=== PATIENT | male | born 2000 ===

== ENCOUNTER 2025-01-28 20:07 | Observation (INO) ==
[2025-01-28] MEDS: ONDANSETRON 4 MG/2 ML VIAL IV ONE (20:38)
[2025-01-28] MEDS: 0.9 % SODIUM CHLORIDE 1,000 ML IV ONE ×2 (20:38→21:20)
[2025-01-28 21:19] LABS: Basophils # (Auto) 0 K/mcL (0.00-0.30); Basophils % (Auto) 0 % (0.0-2.0); Eosinophils # (Auto) 0 K/mcL (0.00-0.70); Eosinophils % (Auto) 0 % (0.0-7.0); Hematocrit 54.1 % (40.1-51.0); Hemoglobin 19.6 g/dL (13.7-17.5); Lymphocytes % (Auto) 6.5 % (15.5-49.0); Mean Corpuscular HGB Conc 36.2 g/dL (31.0-36.0); Mean Platelet Volume 9.8 fL (8.8-12.5); Monocytes # (Auto) 1.85 K/mcL (0.10-0.90); Monocytes % (Auto) 8.5 % (1.0-12.0); Neutrophils % (Auto) 84.4 % (38.0-78.0); Platelet Count 317 K/mcL (140-440); RBC 6.22 M/mcL (4.63-6.08); Red Cell Distribution Width 11.3 % (11.5-14.5); WBC 21.7 K/mcL (4.5-11.0)
[2025-01-28 21:35] LABS: ALT/SGPT 37 U/L (<40); AST/SGOT 42 U/L (<40); Albumin 5.7 gm/dL (3.2-5.2); Albumin/Globulin Ratio 1.5 (1.0-2.3); Alkaline Phosphatase 101 U/L (39-117); Bilirubin,Total 2.3 mg/dL (0.1-1.0); Blood Urea Nitrogen 29 mg/dL (6-20); Calcium 11.1 mg/dL (8.6-10.4); Carbon Dioxide 23 mmol/L (22-30); Chloride 90 mmol/L (96-108); Creatine Kinase 798 U/L (24-195); Globulin 3.9 gm/dL (2.2-3.7); Glomerular Filtration Rate 25; Glucose 129 mg/dL (70-105); Potassium 3.7 mmol/L (3.3-5.1); Sodium 139 mmol/L (133-145)
[2025-01-28 21:36] LABS: Thyroid Stimulating Hormone 4.32 uIU/mL (0.27-5.01)
[2025-01-28 22:40] LABS: Basophils # (Auto) 0.01 K/mcL (0.00-0.30); Basophils % (Auto) 0 % (0.0-2.0); Eosinophils # (Auto) 0 K/mcL (0.00-0.70); Eosinophils % (Auto) 0 % (0.0-7.0); Hematocrit 48.6 % (40.1-51.0); Hemoglobin 17.4 g/dL (13.7-17.5); Lymphocytes # (Auto) 1.13 K/mcL (1.50-4.80); Lymphocytes % (Auto) 5.5 % (15.5-49.0); Mean Cell Volume 88.8 fL (80.0-100.0); Mean Corpuscular HGB Conc 35.8 g/dL (31.0-36.0); Mean Platelet Volume 9.6 fL (8.8-12.5); Monocytes % (Auto) 6.8 % (1.0-12.0); Neutrophils % (Auto) 87.3 % (38.0-78.0); Platelet Count 251 K/mcL (140-440); RBC 5.47 M/mcL (4.63-6.08); Red Cell Distribution Width 11.4 % (11.5-14.5); WBC 20.5 K/mcL (4.5-11.0)
[2025-01-28 23:14] LABS: ALT/SGPT 31 U/L (<40); AST/SGOT 36 U/L (<40); Albumin 4.9 gm/dL (3.2-5.2); Albumin/Globulin Ratio 1.5 (1.0-2.3); Alkaline Phosphatase 80 U/L (39-117); Bilirubin,Total 1.9 mg/dL (0.1-1.0); Blood Urea Nitrogen 27 mg/dL (6-20); Calcium 9.2 mg/dL (8.6-10.4); Carbon Dioxide 25 mmol/L (22-30); Chloride 97 mmol/L (96-108); Globulin 3.2 gm/dL (2.2-3.7); Glomerular Filtration Rate 35; Glucose 95 mg/dL (70-105); Potassium 3.9 mmol/L (3.3-5.1); Sodium 138 mmol/L (133-145)
[2025-01-28 23:15] LABS: Appearance,Urine Cloudy (Clear); Bacteria,Urine Few /hpf (0); Bilirubin,Urine Small mg/dL (Negative); Color,Urine Yellow; Glucose,Urine (UA) Negative (Negative); Ketones,Urine 15 mg/dL (Negative); Leukocyte Esterase,Urine Small /uL (Negative); Mucus,Urine Mod /hpf; Nitrate,Urine Negative (Negative); PH,Urine 5.5 (5.0-9.0); Protein,Urine 100 mg/dL (Negative); Specific Gravity,Urine 1.025 (1.000-1.035); Urine Blood Negative ery/mcL (Negative); Urine Budding Yeast Few /hpf; Urine Hyaline Cast 21 /lph (0-2); Urine RBC 10 /hpf (0-3); Urine Squamous Epithelial Cell 2 /hpf (0-4); Urine WBC 20 /hpf (0-4); Urobilinogen,Urine Normal
[2025-01-29] MEDS ORDERED: ONDANSETRON 4 MG/2 ML VIAL IV PRN ×2 (00:27→06:59)
[2025-01-29] MEDS: 0.9 % SODIUM CHLORIDE 1,000 ML IV SCH (01:33)
[2025-01-29 06:51] LABS: Basophils # (Auto) 0.01 K/mcL (0.00-0.30); Basophils % (Auto) 0.1 % (0.0-2.0); Eosinophils # (Auto) 0.06 K/mcL (0.00-0.70); Eosinophils % (Auto) 0.5 % (0.0-7.0); Hematocrit 43.7 % (40.1-51.0); Hemoglobin 15.6 g/dL (13.7-17.5); Lymphocytes # (Auto) 1.67 K/mcL (1.50-4.80); Lymphocytes % (Auto) 13.1 % (15.5-49.0); Mean Cell Volume 89.2 fL (80.0-100.0); Mean Corpuscular HGB Conc 35.7 g/dL (31.0-36.0); Mean Platelet Volume 9.6 fL (8.8-12.5); Monocytes # (Auto) 1.31 K/mcL (0.10-0.90); Monocytes % (Auto) 10.3 % (1.0-12.0); Neutrophils % (Auto) 75.7 % (38.0-78.0); Platelet Count 231 K/mcL (140-440); Red Cell Distribution Width 11.6 % (11.5-14.5); WBC 12.8 K/mcL (4.5-11.0)
[2025-01-29] MEDS ORDERED: IPRATROPIUM/ALBUTEROL 3 ML AMPUL.NEB NEB PRN (06:59)
[2025-01-29] MEDS ORDERED: ACETAMINOPHEN 325 MG TABLET PO PRN (06:59)
[2025-01-29 07:11] LABS: ALT/SGPT 25 U/L (<40); AST/SGOT 27 U/L (<40); Albumin 4.3 gm/dL (3.2-5.2); Albumin/Globulin Ratio 1.7 (1.0-2.3); Alkaline Phosphatase 72 U/L (39-117); Bilirubin,Direct 0.6 mg/dL (<0.3); Bilirubin,Total 1.8 mg/dL (0.1-1.0); Blood Urea Nitrogen 25 mg/dL (6-20); Carbon Dioxide 24 mmol/L (22-30); Chloride 97 mmol/L (96-108); Globulin 2.6 gm/dL (2.2-3.7); Glomerular Filtration Rate 70; Glucose 110 mg/dL (70-105); Lactate Dehydrogenase 191 U/L (135-225); Potassium 3.4 mmol/L (3.3-5.1); Sodium 135 mmol/L (133-145); Triglycerides 92 mg/dL (<150); Uric Acid 10.3 mg/dL (2.5-8.0)
[2025-01-29] MEDS: DOCUSATE SODIUM 100 MG CAPSULE PO SCH (07:41)
[2025-01-29] MEDS ORDERED: 0.9 % SODIUM CHLORIDE 10 ML SYRINGE IV SCH (14:00)
[2025-01-29] MEDS ORDERED: SENNOSIDES 1 TABLET PO SCH (21:00)
== END 2025-01-29 11:40 | disposition home or self-care (01) ==
LOC: ED 20:07 → MEDSUR 20:07
PROVIDERS: ADMIT Internal Medicine; ATTEND Internal Medicine